=== PATIENT | female | born 1980 | race Two or more races ===

== ENCOUNTER 2021-05-28 15:10 | Outpatient (REF) | payer OTHER, SELFPAY ==
[2021-05-29 09:16] LABS: BV Int Neg Control Negative (Negative); BV Int Pos Control Positive (Positive)
[2021-05-29 09:19] LABS: CT PCR NOT DETECTED (Not Detect.); NG PCR NOT DETECTED (Not Detect.)
[2021-06-01 02:36] LABS: HPV mRNA E6/E7 rflx Not Detected (Not Detected)
== END 2021-05-28 15:11 | disposition home or self-care (01) ==
LOC: HO.LAB 15:10
PROVIDERS: PCP Nurse Practitioner Family; Visit Provider Obstetrics & Gynecology
DX: Z01.419 Encounter for gynecological examination (general) (routine) without abnormal findings (principal); Z11.3 Encounter for screening for infections with a predominantly sexual mode of transmission; Z11.51 Encounter for screening for human papillomavirus (HPV); N73.0 Acute parametritis and pelvic cellulitis; A53.9 Syphilis, unspecified
CPT/HCPCS: 87480; 87491; 87510; 87591; 87624; 87660; 88142; 96372; J0696

== ENCOUNTER → 2021-05-31 13:45 | Outpatient (BNVA) | payer OTHER, SELFPAY | PROVIDERS: PCP Nurse Practitioner Family; Visit Provider Obstetrics & Gynecology | DX: N73.0 Acute parametritis and pelvic cellulitis (principal) | CPT/HCPCS: 99212 ==

== ENCOUNTER 2021-07-31 12:46 | Outpatient (REF) | payer OTHER, SELFPAY ==
--- NOTE | ~2021-07-31 | MM_ITS ---
EXAMINATION: MM SCREENING DIGITAL BREAST TOMOSYNTHESIS, BILATERAL CLINICAL INFORMATION: Screening. Asymptomatic. Age 41. No prior breast imaging. Family history breast cancer, mother. The lifetime risk of breast cancer based on the Tyrer-Cuzick Model is 22%. COMPARISON: None (current study represents initial baseline exam). TECHNIQUE: Digital breast tomosynthesis is performed in both the craniocaudal and mediolateral oblique views along with computer-aided detection (CAD). Synthesized 2D images are generated from the tomosynthesis. FINDINGS: There are scattered areas of fibroglandular density (ACR BI-RADS breast composition Category b). There are no significant masses, abnormal calcifications, or other abnormalities. The axilla and skin contours are unremarkable. MM/MM tomosynthesis screening BI IMPRESSION: No mammographic evidence of malignancy. ASSESSMENT: BI-RADS 1: Negative RECOMMENDATION: 1. Routine annual mammography screening. 2. The lifetime risk of breast cancer based on the Tyrer-Cuzick Model is 22%. Additional annual adjunct screening with breast MRI may be of benefit in women with a risk score of 20% or greater. This patient's information was entered into a reminder system with a target due date for their next mammogram.
== END 2021-07-31 12:47 | disposition home or self-care (01) ==
LOC: HO.MAMMO 12:46
PROVIDERS: Visit Provider Obstetrics & Gynecology
DX: Z12.31 Encounter for screening mammogram for malignant neoplasm of breast (principal)
CPT/HCPCS: 77063; 77067

== ENCOUNTER 2021-09-05 14:06 | Outpatient (REF) | payer OTHER, SELFPAY ==
--- NOTE | ~2021-09-05 | US_ITS ---
EXAMINATION: US PELVIS CLINICAL INFORMATION: Acute parametritis and pelvic cellulitis. COMPARISON: None TECHNIQUE: Ultrasound of the pelvis is performed using both transabdominal and transvaginal transducers along with Doppler. Transvaginal imaging is performed due to inadequate visualization transabdominally. FINDINGS: The uterus is anteverted and measures 8.8 x 4.1 x 5.9 cm in dimension. No focal uterine lesion is seen. Endometrial thickness is normal measuring 0.6 cm. There are nabothian cysts in the cervix. The right ovary is normal appearing and measures 2.1 x 1.8 x 1.4 cm. The left ovary measures 2.5 x 1.9 x 1.9 cm. There is a 2.4 x 1.7 x 2 cm left ovarian cyst. No imaging follow-up is suggested in a premenopausal patient. There is a small amount of fluid in the pelvis. US/US pelvic and transvaginal IMPRESSION: Unremarkable exam. Small left ovarian cyst.
== END 2021-09-05 14:07 | disposition home or self-care (01) ==
LOC: HO.US 14:06
PROVIDERS: Visit Provider Obstetrics & Gynecology
DX: N73.0 Acute parametritis and pelvic cellulitis (principal)
CPT/HCPCS: 76830; 76856

== ENCOUNTER 2021-11-01 13:55 | Outpatient (REF) | payer OTHER, SELFPAY ==
[2021-11-01 15:17] LABS: Hematocrit 39.3 % (37.0-47.0); Hemoglobin 13.2 g/dl (12.0-16.0); Mean Corpuscular HGB Conc 33.6 g/dl (31.0-35.0); Mean Corpuscular Hemoglobin 32.7 pg (27.0-33.0); Mean Corpuscular Volume 97.3 fL (80.0-98.0); Mean Platelet Volume 9.8 fL (9.4-12.3); Platelet Count 180 X10*3/uL (160-400); Red Blood Count 4.04 X10*6/uL (4.20-5.50); Red Cell Distribution Width 14.6 % (11.0-16.0); White Blood Count 6.5 X10*3/uL (4.8-10.8)
[2021-11-01 15:46] LABS: HCG Quantitative < 2 mIU/mL; TSH reflex Free T4 0.88 uIU/mL (0.32-4.0)
[2021-11-01 17:18] LABS: CT PCR NOT DETECTED (Not Detect.); NG PCR NOT DETECTED (Not Detect.)
[2021-11-02 08:40] LABS: Syphilis Screen Nonreactive (Nonreactive)
== END 2021-11-01 13:56 | disposition home or self-care (01) ==
LOC: HO.LAB 13:55
PROVIDERS: PCP Nurse Practitioner Family; Visit Provider Obstetrics & Gynecology
DX: A53.9 Syphilis, unspecified (principal); N93.9 Abnormal uterine and vaginal bleeding, unspecified
CPT/HCPCS: 36415; 81025; 84443; 84702; 85027; 86780; 87491; 87591; 99212

== ENCOUNTER 2021-12-25 13:29 | Outpatient (REF) | payer OTHER, SELFPAY | END 2021-12-25 13:30 | disposition home or self-care (01) | LOC: HO.LAB 13:29 | PROVIDERS: Visit Provider Obstetrics & Gynecology | DX: N93.9 Abnormal uterine and vaginal bleeding, unspecified (principal) | CPT/HCPCS: 58100; 88305 ==